=== PATIENT | female | born 1960 | race Caucasian/White ===

== ENCOUNTER 2017-04-27 06:55 | Day surgery (SDC) | payer OTHER ==
[~2017-04-27] VITALS: Ht 162.6 cm; Wt 79.0 kg
[~2017-04-27 06:55] MED LIST: ALBU8.5H3 INH; ATOR10TA9 PO; BUDE180A INH; CALC625T23 PO; CHOL100015 PO; ESTR10TA PO; GABA100C8 PO; LACT1CAP43 PO; LEVE250T5 PO; LEVO112T2 PO; LEVO112T4 PO; LIOT5TAB3 PO; MULT-658 PO; MULT1TAB76 PO; PANT40TA5 PO; RANI300T PO; VENL37.57 PO; VENL75TA PO
[2017-04-27] MEDS ORDERED: LACTATED RINGERS 1,000 ML IV SCH (07:37)
[2017-04-27 07:38] VITALS: BP 134/80
[2017-04-27] MEDS ORDERED: LIDOCAINE 1%, 2ML SQ PRN (08:00)
[2017-04-27] MEDS ORDERED: MULT-6 PO (08:01)
[2017-04-27] MEDS ORDERED: PHEN30CA2 PO (08:01)
[2017-04-27] MEDS ORDERED: BLAC20TA PO (08:01)
[2017-04-27] MEDS ORDERED: MACA500C PO (08:02)
[2017-04-27 08:17] LABS: BLOOD UREA NITROGEN 13 mg/dL (7-18)
[2017-04-27] MEDS ORDERED: CHLORHEXIDINE MOUTHWASH 15 ML UDC ONE (08:31)
[2017-04-27] MEDS ORDERED: MIDAZOLAM 1 MG/ML, 2ML ONE (08:33)
[2017-04-27] MEDS ORDERED: DEXAMETHASONE 4 MG/ML, 1ML ONE (08:38)
[2017-04-27] MEDS ORDERED: PROPOFOL 10 MG/ML, 50ML ONE (08:38)
[2017-04-27] MEDS ORDERED: ONDANSETRON 2MG/ML, 2ML ONE (08:38)
[2017-04-27] MEDS ORDERED: KETOROLAC 30 MG/1 ML ONE (08:38)
[2017-04-27] MEDS ORDERED: MIDAZOLAM 1 MG/ML, 2ML IV PRN (09:00)
[2017-04-27] MEDS ORDERED: PROMETHAZINE 25 MG/ML, 1ML IV PRN (09:00)
[2017-04-27] MEDS ORDERED: EPHEDRINE 50 MG/ML, 1ML IVPush PRN (09:00)
[2017-04-27] MEDS ORDERED: ACETAMINOPHEN 325 MG TABLET PO PRN (09:00)
[2017-04-27] MEDS ORDERED: METOPROLOL 1 MG/ML, 5ML IV PRN (09:00)
[2017-04-27] MEDS ORDERED: hydrALAzine 20 MG/ML, 1ML IV PRN (09:00)
[2017-04-27] MEDS ORDERED: LABETALOL 5MG/ML, 20ML IV PRN (09:00)
[2017-04-27] MEDS ORDERED: ONDANSETRON 2MG/ML, 2ML IVPush PRN (09:00)
[2017-04-27] MEDS ORDERED: OXYcodone 5 MG/5 ML ORAL.SOL UDC PO PRN (09:00)
[2017-04-27] MEDS ORDERED: MEPERIDINE/PF 25MG/0.5ML IVPush PRN (09:00)
[2017-04-27] MEDS ORDERED: HYDROmorphone 1 MG/ML, 1ML IV PRN (09:00)
[2017-04-27] MEDS ORDERED: FENTANYL PF 100 MCG/2ML IV PRN (09:00)
[2017-04-27] MEDS ORDERED: ALBUTEROL SULFATE 2.5 MG/3 ML NPPB PRN (09:00)
== END 2017-04-27 10:20 | disposition home or self-care (01) ==
LOC: OUT 06:55
PROVIDERS: ATTEND Internal Medicine Gastroenterology
DX: K31.7 Polyp of stomach and duodenum (principal); K22.8 Other specified diseases of esophagus; K29.50 Unspecified chronic gastritis without bleeding; K21.9 Gastro-esophageal reflux disease without esophagitis; J45.909 Unspecified asthma, uncomplicated; E89.0 Postprocedural hypothyroidism; Z88.2 Allergy status to sulfonamides; G43.909 Migraine, unspecified, not intractable, without status migrainosus
CPT/HCPCS: 36415; 43237; 43251; 80048; 85025; 88305; J1100; J1885; J2250; J2405; J2704; J7120

== ENCOUNTER 2017-09-25 16:41 | Inpatient (IN) | payer OTHER ==
[~2017-09-25] VITALS: Ht 160 cm; Wt 84.6 kg
[~2017-09-25 16:41] MED LIST changes: -ALBU8.5H3 INH; +ALBU8.5H8 INH; +BLAC20TA PO; +GABA-826 PO; -GABA100C8 PO; +MACA500C PO; +MULT-6 PO; +PHEN30CA3 PO
[2017-09-25 17:26] LABS: HEMATOCRIT 44.7 % (34.6-47.8); WHITE BLOOD COUNT 14.5 x10^3/uL (3.4-10)
[2017-09-25] MEDS ORDERED: SODIUM CHLORIDE FLUSH 10ML SYR IVF ONE (17:30)
[2017-09-25 17:39] LABS: ASPARTATE AMINO TRANSFERASE 16 U/L (15-37); BLOOD UREA NITROGEN 10 mg/dL (7-18)
[2017-09-25] MEDS ORDERED: SODIUM CHLORIDE 0.9% 1,000 ML IV ONE (19:08)
[2017-09-25] MEDS ORDERED: morphine SULFATE 10 MG/ML, 1ML ONE (19:55)
[2017-09-25] MEDS ORDERED: ONDANSETRON 2MG/ML, 2ML ONE ×2 (19:55→22:13)
[2017-09-25] MEDS ORDERED: ONDANSETRON 2MG/ML, 2ML IVPush ONE (20:00)
[2017-09-25] MEDS ORDERED: MORPHINE SULFATE 4 MG/ML, 1ML IVPush ONE (20:00)
[2017-09-25] MEDS ORDERED: OMNIPAQUE 350 MG/ML, 100ML BOTTLE ONE (21:05)
[2017-09-25] MEDS ORDERED: CEFOTETAN PMX 1GM/50ML 50 ML ONE (21:37)
[2017-09-25] MEDS ORDERED: BUPIVACAINE/PF 0.5% ONE (21:55)
[2017-09-25] MEDS ORDERED: EPINEPHRINE 1 MG/ML, 1ML ONE (21:55)
[2017-09-25] MEDS ORDERED: CEFOTETAN PMX 1GM/50ML 50 ML IV ONE (22:00)
[2017-09-25] MEDS ORDERED: PROPOFOL 10 MG/ML, 20ML ONE (22:13)
[2017-09-25] MEDS ORDERED: ROCURONIUM 10 MG/ML ONE ×2 (22:13→22:31)
[2017-09-25] MEDS ORDERED: SUCCINYLCHOLINE 20 MG/ML, 10ML ONE (22:13)
[2017-09-25] MEDS ORDERED: FENTANYL PF 100 MCG/2ML ONE ×2 (22:15)
[2017-09-25] MEDS ORDERED: MIDAZOLAM 1 MG/ML, 2ML ONE (22:15)
[2017-09-25] MEDS ORDERED: ACETAMINOPHEN 325 MG TABLET PO PRN (22:30)
[2017-09-25] MEDS ORDERED: ONDANSETRON 2MG/ML, 2ML IVPush PRN (22:30)
[2017-09-25] MEDS ORDERED: FENTANYL PF 100 MCG/2ML IV PRN (22:30)
[2017-09-25] MEDS ORDERED: PROMETHAZINE 25 MG/ML, 1ML IV PRN (22:30)
[2017-09-25] MEDS ORDERED: OXYcodone 5 MG/5 ML ORAL.SOL UDC PO PRN (22:30)
[2017-09-25] MEDS ORDERED: METOPROLOL 1 MG/ML, 5ML IV PRN (22:30)
[2017-09-25] MEDS ORDERED: HYDROmorphone 1 MG/ML, 1ML IV PRN (22:30)
[2017-09-25] MEDS ORDERED: MEPERIDINE/PF 25MG/0.5ML IVPush PRN (22:30)
[2017-09-25] MEDS ORDERED: EPHEDRINE 50 MG/ML, 1ML IVPush PRN (22:30)
[2017-09-25] MEDS ORDERED: hydrALAzine 20 MG/ML, 1ML IV PRN (22:30)
[2017-09-25] MEDS ORDERED: LABETALOL 5MG/ML, 20ML IV PRN (22:30)
[2017-09-25] MEDS ORDERED: ALBUTEROL SULFATE 2.5 MG/3 ML NPPB PRN (22:30)
[2017-09-25] MEDS ORDERED: NEOSTIGMINE 1 MG/ML, 10ML ONE (22:31)
[2017-09-25] MEDS ORDERED: GLYCOPYRROLATE 0.2MG/1ML, 5ML ONE (22:31)
[2017-09-25] MEDS ORDERED: DEXAMETHASONE 4 MG/ML, 1ML ONE (22:37)
[2017-09-26] MEDS ORDERED: morphine SULFATE 10 MG/ML, 1ML IV PRN (00:30)
[2017-09-26] MEDS ORDERED: ONDANSETRON 2MG/ML, 2ML IV PRN (00:30)
[2017-09-26 03:07] VITALS: BP 115/72
[2017-09-26] MEDS: HYDROcodone/APAP 5/325 TABLET PO PRN ×2 (06:04→11:17)
[2017-09-26 06:49] VITALS: BP 109/63
[2017-09-26] MEDS ORDERED: SODIUM CHLORIDE FLUSH 3ML SYRINGE IVF SCH (09:00)
[2017-09-26 11:38] VITALS: BP 101/65
[2017-09-26] MEDS ORDERED: HYDR-3240 PO (12:05)
== END 2017-09-26 12:40 | disposition home or self-care (01) | DRG 340 ==
LOC: ED 20:45 → EDIP 22:55 → 4NOR 23:54 → DCLOUNGE 09-26 11:54
PROVIDERS: ADMIT Surgery Vascular Surgery; ATTEND Surgery Vascular Surgery
PROC: 0T9B70Z Drainage of Bladder with Drainage Device, Via Natural or Artificial Opening (ICD-10-PCS; 2017-09-25)
PROC: 0DTJ4ZZ Resection of Appendix, Percutaneous Endoscopic Approach (ICD-10-PCS; principal; 2017-09-25 22:15)
DX: K35.3 Acute appendicitis with localized peritonitis (principal); E06.3 Autoimmune thyroiditis; E78.00 Pure hypercholesterolemia, unspecified; Z87.442 Personal history of urinary calculi
CPT/HCPCS: 36415; 74177; 80053; 81003; 85025; 88304; 96361; 96374; 96375; J0171; J1100; J2250; J2405; J2704; J2710; J3010; J3490; Q9967; J0330; J7030; S0074

== ENCOUNTER 2021-05-06 10:16 | Outpatient (CLI) | payer OTHER ==
[~2021-05-06 10:16] MED LIST changes: +HYDR-2214 PO; +LIOT5TAB11 PO; -LIOT5TAB3 PO; -PANT40TA5 PO; +PANT40TA6 PO
[2021-05-06] MEDS ORDERED: MELO15TA24 PO (10:58)
[2021-05-06] MEDS ORDERED: LEVO150T5 PO (10:58)
[2021-05-06] MEDS ORDERED: DICY10CA3 PO (10:58)
[2021-05-06] MEDS ORDERED: OMEP-110 PO (10:58)
[2021-05-06] MEDS ORDERED: INUL1TAB4 PO (10:58)
[2021-05-06] MEDS ORDERED: ADVAIR INH (10:58)
[2021-05-06] MEDS ORDERED: HYDR50TA99 PO (10:58)
[2021-05-06] MEDS ORDERED: MELATONIN PO (10:58)
[2021-05-06] MEDS ORDERED: METF500T17 PO (10:58)
[2021-05-06 11:15] LABS: ALANINE AMINOTRANSFERASE 62 U/L (12-78); ALBUMIN 3.7 g/dL (3.4-5.0); ANION GAP 9 mmol/L (5-15); CALCIUM 8.8 mg/dL (8.5-10.1); CHLORIDE 112 mmol/L (98-107); CREATININE 0.79 mg/dL (0.55-1.02)
[2021-05-06 11:16] LABS: ALKALINE PHOSPHATASE 80 U/L (45-117); BILIRUBIN,TOTAL 0.5 mg/dL (0.2-1.0)
== END 2021-05-06 23:59 | disposition home or self-care (01) ==
LOC: STAR 10:16
PROVIDERS: ATTEND Internal Medicine Gastroenterology
DX: Z01.818 Encounter for other preprocedural examination (principal); R07.89 Other chest pain; I49.8 Other specified cardiac arrhythmias
CPT/HCPCS: 36415; 80053; 93005

== ENCOUNTER 2021-05-20 06:26 | Day surgery (SDC) | payer OTHER ==
[~2021-05-20] VITALS: Ht 162.6 cm; Wt 86.2 kg
[~2021-05-20 06:26] MED LIST changes: +ADVAIR INH; +DICY10CA3 PO; +HYDR50TA99 PO; +INUL1TAB4 PO; +LEVO150T5 PO; +MELATONIN PO; +MELO15TA24 PO; +METF500T17 PO; +OMEP-110 PO
[2021-05-20 07:06] VITALS: BP 153/89
[2021-05-20] MEDS ORDERED: CHLORHEXIDINE 15 ML UDC ONE (07:17)
[2021-05-20] MEDS ORDERED: FENTANYL PF 100 MCG/2ML ONE (07:28)
[2021-05-20] MEDS ORDERED: PROMETHAZINE 25 MG/ML, 1ML IVPush PRN (07:30)
[2021-05-20] MEDS ORDERED: METOPROLOL 1 MG/ML, 5ML IV PRN (07:30)
[2021-05-20] MEDS ORDERED: CHLORHEXIDINE 15 ML UDC PO ONE (07:30)
[2021-05-20] MEDS ORDERED: LABETALOL 5MG/ML, 20ML IV PRN (07:30)
[2021-05-20] MEDS ORDERED: HALOPERIDOL 5 MG/ML IV PRN (07:30)
[2021-05-20] MEDS ORDERED: EPHEDRINE 50 MG/ML, 1ML IVPush PRN (07:30)
[2021-05-20] MEDS ORDERED: KETOROLAC 30 MG/1 ML IVPush PRN (07:30)
[2021-05-20] MEDS ORDERED: ACETAMINOPHEN 325 MG TABLET PO PRN (07:30)
[2021-05-20] MEDS ORDERED: METOCLOPRAMIDE 5 MG/ML, 2ML IVPush PRN (07:30)
[2021-05-20] MEDS ORDERED: hydrALAzine 20 MG/ML, 1ML IV PRN (07:30)
[2021-05-20] MEDS ORDERED: FENTANYL PF 100 MCG/2ML IV PRN (07:30)
[2021-05-20] MEDS ORDERED: OXYcodone 5 MG/5 ML ORAL.SOL UDC PO PRN (07:30)
[2021-05-20] MEDS ORDERED: DIPHENHYDRAMINE 50 MG/ML, 1ML IVPush PRN (07:30)
[2021-05-20] MEDS ORDERED: LACTATED RINGERS 1,000 ML IV SCH (07:30)
[2021-05-20] MEDS ORDERED: ONDANSETRON 2MG/ML, 2ML IVPush PRN (07:30)
[2021-05-20] MEDS ORDERED: SIMETHICONE DROPS 40 MG/0.6 ML BOTTLE ONE (08:13)
[2021-05-20] MEDS ORDERED: PROPOFOL 10 MG/ML, 50ML ONE (08:14)
== END 2021-05-20 09:30 | disposition home or self-care (01) ==
LOC: OUT 06:26
PROVIDERS: ATTEND Internal Medicine Gastroenterology
DX: K22.8 Other specified diseases of esophagus (principal); K31.7 Polyp of stomach and duodenum; K21.9 Gastro-esophageal reflux disease without esophagitis; E11.9 Type 2 diabetes mellitus without complications; E89.0 Postprocedural hypothyroidism; J45.909 Unspecified asthma, uncomplicated; M19.90 Unspecified osteoarthritis, unspecified site; E66.9 Obesity, unspecified; Z20.822 Contact with and (suspected) exposure to COVID-19; Z79.84 Long term (current) use of oral hypoglycemic drugs; Z79.890 Hormone replacement therapy; Z79.899 Other long term (current) drug therapy; Z86.010 Personal history of colon polyps; Z88.2 Allergy status to sulfonamides; Z90.49 Acquired absence of other specified parts of digestive tract; Z98.890 Other specified postprocedural states
CPT/HCPCS: 43239; 43242; 43251; 82962; 88305; J2704; J3010; J7120; U0003; U0005